=== PATIENT | male | born 1965 | race Caucasian/White ===

== ENCOUNTER 2021-05-22 07:43 | Outpatient (CLI) | payer OTHER, SELFPAY ==
--- NOTE | 2021-06-06 14:52 | WPDSLEEPSTUD ---
Sleep Study Date of Study: 05/22/21 Ordering Provider: Yvon Soto APRN Interpreting Physician: Mai Angeles DO Sleep Study Type: Split Polysomnogram Height: 1.83 m Weight: 110.223 kg Body Mass Index: 32.9 Neck Circumference (inches): 17.5 [place]: 7 Reason for Sleep Study Patient had a Split Study on 02/07/2009 that showed an AHI of 31.6. He was titrated to 9 cm. The patient is still using his current machine but he has now developed snoring with it. Sleep History The patient is a 56 year old male with obstructive sleep apnea, HTN, right rotator cuff injury and history of tobacco abuse that had a Split Study ordered by the pulmonary group. the patient denies awakening from sleep short of breath. He denies awakening at night with heartburn, belching or cough. He occasionally snores and is constantly loud enough that others complain. He occasionally has trouble sleeping when he has a cold. He rarely wakes up gasping for air throughout the night. He denies having breathing problems at night observed by himself or others. He rarely sweats excessively at night. Denies heart palpitations or irregular heartbeats during the night. He denies falling asleep during the day and while driving. He denies sleep paralysis and cataplexy. He denies having trouble at school or work due to sleepiness. He occasionally experiences vivid dreamlike scenes upon awakening or falling asleep. He denies having nightmares. He occasionally remembers his dreams. He frequently has thoughts racing through his mind. He denies feeling sad, depressed or anxious. He denies having muscular tension. He denies noticing parts of his body jerk. He denies kicking during the night. He denies having crawling and aching feelings in his legs as well leg pain during the night. He occasionally grinds his teeth during sleep but never awakens with a morning jaw pain. He is occasionally bothered by pain during the day and occasionally awakened by pain during the night. Occasionally wakes up feeling stiff in the morning. He occasionally wakes up with sore achy muscles. He occasionally wakes up with pain in the neck, spine and of joints. He goes to bed at 10:30 p.m. on weekdays and at midnight on the weekends. He can take him 5-30 minutes to fall asleep. He wakes up 3-4 times throughout the night to urinate and let the dogs out. He is able to fall back asleep quickly. He wakes up at 6:30 a.m. on weekdays and 8:00 a.m. on the weekends. He typically gets 8 hours of sleep per night. He does not stay in bed long when he awakens. He currently lives with his . He does not consume any caffeinated beverages within 2 hours of bedtime. He does not engage in physical exercise before bedtime. He will watch television before falling asleep. He does not take naps in the afternoon or the evening. He will drink 1 caffeinated beverage per day. He quit smoking 5 years ago. He will have 2-3 alcoholic beverages per day. He denies recreational drug use. [facility] Past Medical History Medical History Essential hypertension RAFAELA (obstructive sleep apnea) Rotator cuff arthropathy of right shoulder Family History Family History Father Family history of lung cancer Other Diabetes mellitus Hypertension Social History Social History Smoking packs per day: 1 Smoking cigarettes per day: 20.0 Years smoked: 20 Smoking pack-years: 20.00 Smoking status: Former smoker Tobacco type: cigarettes Second hand tobacco smoke exposure: No Smoking end date: 01/22/17 Alcohol intake: current Drinks per week: 14 Alcohol use details: social Substance use: never Substance use type: does not use Living arrangements: with family Spiritual care concerns: No Medications Home Medications
[2021-06-06 15:09] VITALS: BMI 32.9
== END 2021-05-23 07:24 | disposition home or self-care (01) ==
LOC: ANHCSM 07:44
PROVIDERS: PCP Internal Medicine; Visit Provider Nurse Practitioner Family
DX: G47.30 Sleep apnea, unspecified (principal); G47.33 Obstructive sleep apnea (adult) (pediatric)
CPT/HCPCS: 95811

== ENCOUNTER 2021-06-05 01:24 | Day surgery (SDC) | payer OTHER, SELFPAY ==
[2021-05-23 15:06] VITALS: BMI 32.5
[2021-06-05 10:54] VITALS: BP 109/75; PULSE 79; RESP 20; TEMP 36.6; O2SAT 100
--- NOTE | 2021-06-05 10:59 | P.PNAN_ITS ---
Anes - Initial Pre Proc Eval Procedure: Operation Date: 06/05/21 12:30 Proposed Procedures p Screening Colonoscopy - Anderson Farias MD Date/Time: 06/05/21 10:59 Surgeon: Anderson Farias MD Pre Op Diagnosis: neoplasm screening Patient Data Age: 56 Gender: M Height: 1.83 m Weight: 106.4 kg Last Vital Signs Temp 36.6 C 06/05/21 10:54 Pulse 79 06/05/21 10:54 Resp 20 06/05/21 10:54 BP 109/75 06/05/21 10:54 Pulse Ox 100 06/05/21 10:54 Allergies Allergy/AdvReac Type Severity Reaction Status Date / Time No Known Allergies Allergy Verified 06/05/21 10:53 Home Medications Medication Instructions Recorded Confirmed Type etanercept 50 mg/mL (1 mL) 50 mg SUBCUT WEEKLY 03/23/21 05/23/21 History subcutaneous syringe hydrochlorothiazide 12.5 mg tablet 12.5 mg PO DAILY #90 tablet 04/14/21 05/23/21 Rx lisinopril 40 mg tablet 40 mg PO DAILY 90 Days #90 tablet 04/14/21 05/23/21 Rx Patient hx anesthesia problems: none Family hx anesthesia problems: none Results Review: All pre-operative results and documents have been reviewed as part of the pre-operative evaluation. [facility], LAT[facility] Past Medical History Medical History Rotator cuff arthropathy of right shoulder Family History Family History Father Family history of lung cancer Other Diabetes mellitus Hypertension Social History Social History Smoking packs per day: 1 Smoking cigarettes per day: 20.0 Years smoked: 20 Smoking pack-years: 20.00 Smoking status: Former smoker Tobacco type: cigarettes Second hand tobacco smoke exposure: No Smoking end date: 01/22/17 Alcohol intake: current Drinks per week: 14 Alcohol use details: social Substance use: never Substance use type: does not use Living arrangements: with family Spiritual care concerns: No Anes - Eval Final PreProcedure Day of Procedure 06/05/21 10:59 Patient weight: obese Heart: regular rate and rhythm Lungs: clear to auscultation Airway: Mallampati scale class II Neurological: alert and oriented Last oral intake: >/= 8 hours ASA classification: III Emergent: no Anesthetic plan: proceed Anesthesia type and monitoring: general GIVS and standard monitoring Results Review: All pre-operative results and documents have been reviewed as part of the pre-operative evaluation. Informed Consent: The patient's anesthetic plan and its attendant risks and benefits were discussed with the patient/family/POA. Questions were solicited and answers provided to the satisfaction of the patient/family/POA.
--- NOTE | 2021-06-05 11:01 | PM.HPGS ---
History of Present Illness History of Present Illness Consent: Risks, benefits, and alternatives have been discussed and questions answered. Patient agrees to proceed with procedure. Chief complaint: neoplasm screening Narrative: Delfino Ku is a 56 year old male here for first screening colonoscopy Review of Systems Constitutional: Constitutional: Denies headache(s) and Denies weakness Eyes: Eyes: Denies blurry vision ENT: Reports Normal hearing present, Denies headache(s) and Denies neck pain Cardiovascular: Cardiovascular: Denies chest pain and Denies dyspnea Respiratory: Respiratory: Denies dyspnea Gastrointestinal: Gastrointestinal: Reports no additional gastrointestinal complaints Genitourinary: Genitourinary: Denies dysuria Musculoskeletal: Musculoskeletal: Denies neck pain Integumentary/Breasts: Skin/Breast: Denies dry skin Neurologic: Reports Normal hearing present, Denies headache(s) and Denies weakness Psychiatric: Psychiatric: Denies anxiety Endocrine: Endocrine: Denies change in body appearance Hematologic/Lymphatic: Hematologic/Lymphatic: Denies easy bleeding Allergic/Immunologic: Allergic/Immunologic: Denies urticaria PMFSH Past Medical History Medical History Rotator cuff arthropathy of right shoulder Family History Family History Father Family history of lung cancer Other Diabetes mellitus Hypertension Social History Social History Smoking packs per day: 1 Smoking cigarettes per day: 20.0 Years smoked: 20 Smoking pack-years: 20.00 Smoking status: Former smoker Tobacco type: cigarettes Second hand tobacco smoke exposure: No Smoking end date: 01/22/17 Alcohol intake: current Drinks per week: 14 Alcohol use details: social Substance use: never Substance use type: does not use Living arrangements: with family Spiritual care concerns: No Meds Home Medications and Allergies Home Medications Medication Instructions Recorded Confirmed Type etanercept 50 mg/mL (1 mL) 50 mg SUBCUT WEEKLY 03/23/21 05/23/21 History subcutaneous syringe hydrochlorothiazide 12.5 mg tablet 12.5 mg PO DAILY #90 tablet 04/14/21 05/23/21 Rx lisinopril 40 mg tablet 40 mg PO DAILY 90 Days #90 tablet 04/14/21 05/23/21 Rx Allergies Allergy/AdvReac Type Severity Reaction Status Date / Time No Known Allergies Allergy Verified 06/05/21 10:53 Vital Signs Vital Signs - 24 hr 06/05/21 10:54 Temperature 97.9 F Pulse Rate 79 Respiratory Rate 20 Blood Pressure 109/75 Pulse Oximetry 100 Exam Const: General: comfortable and no acute distress HENMT: General nose exam: Normal nares present Eyes: General: appearance normal, both eyes and all related structures Neck: Neck: no JVD Resp: Auscultation: clear to auscultation bilaterally Cardio: Rate: regular rate Rhythm: regular rhythm GI: Inspection: non-distended GI Palp: Yes Soft to palpation Skin: General skin exam: normal color Neuro: General: gait normal Speech: normal speech Extrem: General: normal to inspection Psych: Mental Status: mental status grossly normal Assessment and Plan Assessment and plan (1) Encounter for screening colonoscopy: Code(s): Z12.11 - Encounter for screening for malignant neoplasm of colon Status: Acute Assessment and Plan: colonoscopy
[2021-06-05] MEDS: LACTATED RINGERS 1,000 ML 150 ML IV CONT (11:03)
[2021-06-05 11:32] VITALS: BP 89/53; PULSE 75; RESP 12; O2SAT 98
[2021-06-05 11:42] VITALS: BP 96/68; PULSE 69; RESP 20; O2SAT 100
[2021-06-05 11:52] VITALS: BP 108/76; PULSE 68; RESP 20; O2SAT 99
== END 2021-06-05 12:05 | disposition home or self-care (01) ==
PROVIDERS: PCP Internal Medicine; Visit Provider Internal Medicine Gastroenterology
PROC: 0DJD8ZZ Inspection of Lower Intestinal Tract, Via Natural or Artificial Opening Endoscopic (ICD-10-PCS; CPT 45378; principal; 2021-06-05 12:30)
DX: Z12.11 Encounter for screening for malignant neoplasm of colon (principal); D12.0 Benign neoplasm of cecum; D12.2 Benign neoplasm of ascending colon; K63.5 Polyp of colon; K57.30 Diverticulosis of large intestine without perforation or abscess without bleeding; Z87.891 Personal history of nicotine dependence; E66.9 Obesity, unspecified; Z68.31 Body mass index [BMI] 31.0-31.9, adult
CPT/HCPCS: 45385; 88305; J2704; J7120

== ENCOUNTER 2021-07-04 11:24 | Outpatient (CLI) | payer OTHER, SELFPAY ==
--- NOTE | ~2021-07-04 | CT_ITS ---
EXAMINATION: CT lung screening DATE: 07/04/2021 11:39 INDICATION: History of tobacco TECHNIQUE: Computed tomography (CT) of the chest was performed without intravenous contrast. The dose -length product was 215.21 mGy-cm. Automated exposure control and iterative reconstruction technique were employed. COMPARISON: Chest x-ray dated 04/10/2012 FINDINGS: Heart size is normal. No thoracic lymphadenopathy. Heart size is normal. No significant vas cular abnormality. No significant pleural or pericardial effusion. The upper abdomen is unremarkable. No endobronchial lesions. No pneumothorax. There are multiple healed right rib fractures. There is d ependent atelectasis. No suspicious pulmonary nodules or masses. Mild thoracic spondylosis. IMPRESSION: 1. Lung-RADS category 1: Negative. Continue annual screening with noncontrast low-dose chest CT in 12 months. Reviewed, dictated and finalized at location A. IMPRESSION: 1. Lung-RADS category 1: Negative. Continue annual screening with noncontrast l ow-dose chest CT in 12 months.
== END 2021-07-04 11:25 | disposition home or self-care (01) ==
PROVIDERS: PCP Internal Medicine; Visit Provider Internal Medicine
DX: Z87.891 Personal history of nicotine dependence (principal)
CPT/HCPCS: 71271

== ENCOUNTER 2024-10-05 01:33 | Day surgery (SDC) | payer OTHER, SELFPAY ==
[2024-09-21 08:10] VITALS: BMI 29.8
--- OUTSIDE RECORDS SUMMARY | 2024-10-05 01:38 | XMS_ITS | Continuity of Care Document ---
Author Name Dottie Bojorquez Address [address] [facility] [address] [place] [address] Organization Unknown Address [address] [place] [address] [address] [place] [address] Medications No known medications Problems * Left Shoulder Pain on: 2023-06-27
--- OUTSIDE RECORDS SUMMARY | 2024-10-05 01:38 | XMS_ITS | Continuity of Care Document ---
Author Name Sinena Hensley Address [address] [facility] [place] [address] Organization Unknown Address [address] [facility] [place] [address] Medications No known medications Problems No known problems
--- OUTSIDE RECORDS SUMMARY | 2024-10-05 01:38 | XMS_ITS | Continuity of Care Document ---
Author Name Dottie Bojorquez Address [address] [facility] [place] [address] Organization Unknown Address [address] [facility] [address] [place] [address] Problems No known problems
--- OUTSIDE RECORDS SUMMARY | 2024-10-05 01:38 | XMS_ITS | Continuity of Care Document ---
Author Name Mimi Castillo Address [address] [facility] [address] [place] [address] Organization Unknown Address [address] [place], [place] [id number] [place] [address] Medications No known medications Problems * Left Shoulder Pain on: 2023-06-27
[2024-10-05 06:15] VITALS: BP 145/83; PULSE 67; RESP 18; TEMP 36.5; O2SAT 100; BMI 29.9
[2024-10-05] MEDS: LACTATED RINGERS 1,000 ML 150 ML IV CONT (06:38)
--- NOTE | 2024-10-05 06:49 | WPDANESEPPF ---
Anes - Initial Pre Proc Eval Procedure: Operation Date: 10/05/24 07:30 Proposed Procedures p Screening Colonoscopy - Anderson Farias MD Date/Time: 10/05/24 06:49 Surgeon: Anderson Farias MD Pre Op Diagnosis: Personal history of colon polyps,Screening Patient Data Age: 59 Gender: M Height: 1.83 m Weight: 100.3 kg Last Vital Signs Temp 36.5 C 10/05/24 06:15 Pulse 67 10/05/24 06:15 Resp 18 10/05/24 06:15 BP 145/83 H 10/05/24 06:15 Pulse Ox 100 10/05/24 06:15 O2 Del Method Room Air 10/05/24 06:15 Allergies Allergy/AdvReac Type Severity Reaction Status Date / Time No Known Allergies Allergy Verified 10/05/24 06:22 Home Medications ?Medication ?Instructions ?Recorded ?Confirmed ?Type adalimumab 40 mg/0.8 mL See Rx Instructions subcut .COMPLEX 11/08/22 10/05/24 History subcutaneous pen kit (Humira Pen) hydrochlorothiazide 12.5 mg tablet 12.5 mg PO DAILY #90 tabs 04/15/23 10/05/24 Rx lisinopril 40 mg tablet 40 mg PO DAILY 90 days #90 tabs 04/15/23 10/05/24 Rx meloxicam 15 mg tablet 15 mg PO DAILY 09/21/24 10/05/24 History Patient hx anesthesia problems: none Family hx anesthesia problems: none Results Review: All pre-operative results and documents have been reviewed as part of the pre-operative evaluation. COUNT INCLUDES THE [facility] Past Medical History Medical History Essential hypertension RAFAELA (obstructive sleep apnea) Rotator cuff arthropathy of right shoulder Family History Family History Father Family history of lung cancer Other Diabetes mellitus Hypertension Social History Social History Smoking packs per day: 1 Smoking cigarettes per day: 20.0 Years smoked: 20 Smoking pack-years: 20.00 Smoking status: Former smoker Tobacco type: cigarettes Second hand tobacco smoke exposure: No Smoking end date: 01/22/17 Alcohol intake: current Drinks per week: 12 Alcohol use details: social Substance use: never Substance use type: does not use Lack of Transportation: No Lack of Food: Never True Current Housing: I Have Housing Concerned About Future Housing: No Difficulty Paying Gas/Electric Bills: No Difficulty Paying for Meds: No Currently Unemployed: No Education: High School Diploma/GED Difficulty w/ Childcare or Family Care: No Living arrangements: with family Spiritual care concerns: No Anes - Eval Final PreProcedure Day of Procedure 10/05/24 06:49 Patient weight: obese Heart: regular rate and rhythm Lungs: clear to auscultation Airway: Mallampati scale class II Neurological: alert and oriented Last oral intake: >/= 8 hours ASA classification: III Emergent: no Anesthetic plan: proceed Anesthesia type and monitoring: general GIVS and standard monitoring Results Review: All pre-operative results and documents have been reviewed as part of the pre-operative evaluation. Informed Consent: The patient's anesthetic plan and its attendant risks and benefits were discussed with the patient/family/POA. Questions were solicited and answers provided to the satisfaction of the patient/family/POA.
--- NOTE | 2024-10-05 07:28 | PM.HPGS ---
History of Present Illness History of Present Illness Consent: Risks, benefits, and alternatives have been discussed and questions answered. Patient agrees to proceed with procedure. Chief complaint: Personal history of colon polyps,Screening Narrative: Delfino Ku is a 59 year old male with colon polyp 3 years ago Review of Systems Review of Systems: All systems reviewed & are unremarkable except as noted in HPI and below PMFSH Past Medical History Medical History (Updated 10/05/24 @ 07:29 by Anderson Farias MD) Colon polyp Rotator cuff arthropathy of right shoulder RAFAELA (obstructive sleep apnea) Essential hypertension Family History Family History Father Family history of lung cancer Other Diabetes mellitus Hypertension Social History Social History Smoking packs per day: 1 Smoking cigarettes per day: 20.0 Years smoked: 20 Smoking pack-years: 20.00 Smoking status: Former smoker Tobacco type: cigarettes Second hand tobacco smoke exposure: No Smoking end date: 01/22/17 Alcohol intake: current Drinks per week: 12 Alcohol use details: social Substance use: never Substance use type: does not use Lack of Transportation: No Lack of Food: Never True Current Housing: I Have Housing Concerned About Future Housing: No Difficulty Paying Gas/Electric Bills: No Difficulty Paying for Meds: No Currently Unemployed: No Education: High School Diploma/GED Difficulty w/ Childcare or Family Care: No Living arrangements: with family Spiritual care concerns: No Meds Home Medications and Allergies Home Medications ?Medication ?Instructions ?Recorded ?Confirmed ?Type adalimumab 40 mg/0.8 mL See Rx Instructions subcut .COMPLEX 11/08/22 10/05/24 History subcutaneous pen kit (Humira Pen) hydrochlorothiazide 12.5 mg tablet 12.5 mg PO DAILY #90 tabs 04/15/23 10/05/24 Rx lisinopril 40 mg tablet 40 mg PO DAILY 90 days #90 tabs 04/15/23 10/05/24 Rx meloxicam 15 mg tablet 15 mg PO DAILY 09/21/24 10/05/24 History Allergies Allergy/AdvReac Type Severity Reaction Status Date / Time No Known Allergies Allergy Verified 10/05/24 06:22 Vital Signs Vital Signs - 24 hr 10/05/24 06:15 Temperature 97.7 F Pulse Rate 67 Respiratory Rate 18 Blood Pressure 145/83 H Pulse Oximetry 100 Oxygen Delivery Room Air Exam Const: General: comfortable and no acute distress HENMT: Face/Nose/Sinus: Normal nares present Eyes: General: appearance normal, both eyes and all related structures Neck: Neck: no JVD Resp: Auscultation: clear to auscultation bilaterally Cardio: Rate: regular rate Rhythm: regular rhythm GI: Inspection: non-distended GI Palp: Yes Soft to palpation Skin: General skin exam: normal color Neuro: Speech: normal speech Extrem: General: normal to inspection Psych: Mental Status: mental status grossly normal Assessment and Plan Assessment and plan (1) Colon polyp: Code(s): K63.5 - Polyp of colon Status: Acute Assessment and Plan: colonoscopy
[2024-10-05 07:53] VITALS: BP 102/65; PULSE 62; RESP 18; O2SAT 100
[2024-10-05 08:03] VITALS: BP 117/77; PULSE 59; RESP 17; O2SAT 100
[2024-10-05 08:13] VITALS: BP 125/79; PULSE 59; RESP 17; O2SAT 100
== END 2024-10-05 08:19 | disposition home or self-care (01) ==
PROVIDERS: PCP Nurse Practitioner Family; Referring Provider Internal Medicine Gastroenterology; Visit Provider Internal Medicine Gastroenterology
PROC: 0DJD8ZZ Inspection of Lower Intestinal Tract, Via Natural or Artificial Opening Endoscopic (ICD-10-PCS; CPT 45378; principal; 2024-10-05 07:30)
DX: Z12.11 Encounter for screening for malignant neoplasm of colon (principal); K64.8 Other hemorrhoids; K57.30 Diverticulosis of large intestine without perforation or abscess without bleeding; I10 Essential (primary) hypertension; G47.33 Obstructive sleep apnea (adult) (pediatric); E66.9 Obesity, unspecified; Z68.30 Body mass index [BMI] 30.0-30.9, adult; Z79.620 Long term (current) use of immunosuppressive biologic; Z87.891 Personal history of nicotine dependence; Z86.0100 Personal history of colon polyps, unspecified; Z80.1 Family history of malignant neoplasm of trachea, bronchus and lung
CPT/HCPCS: 45378; J2003; J2704; J7120